=== PATIENT | female | born 1960 | race American Indian/Alaskan Native ===

== ENCOUNTER 2017-10-28 16:56 | Emergency (ER) | payer OTHER ==
[2017-10-28 17:25] VITALS: BP 146/58
[2017-10-28 17:49] LABS: ANION GAP 13.9; CHLORIDE,CL 97 mmol/L (101-111); SODIUM,NA 131 mmol/L (135-145)
[2017-10-28] MEDS ORDERED: Iopamidol 612 MG/ML 100 ML Bottle IVPUSH ONE (18:41)
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
== END 2017-10-28 20:05 | disposition home or self-care (01) ==
LOC: DL.ED 16:56
DX: S30.0XXA Contusion of lower back and pelvis, initial encounter (principal); E11.65 Type 2 diabetes mellitus with hyperglycemia; I10 Essential (primary) hypertension; E78.00 Pure hypercholesterolemia, unspecified; F17.210 Nicotine dependence, cigarettes, uncomplicated; Z79.82 Long term (current) use of aspirin; Z79.4 Long term (current) use of insulin; Z79.899 Other long term (current) drug therapy; Z88.8 Allergy status to other drugs, medicaments and biological substances; Z91.013 Allergy to seafood; V53.5XXA Driver of pick-up truck or van injured in collision with car, pick-up truck or van in traffic accident, initial encounter; Y92.410 Unspecified street and highway as the place of occurrence of the external cause
CPT/HCPCS: 36415; 72125; 72131; 74177; 80053; 80305; 81001; 82962; 85025; 99284; G0480; Q9967

== ENCOUNTER 2018-05-11 23:54 | Emergency (ER) | payer OTHER ==
[2018-05-11 23:59] VITALS: BP 126/63
[2018-05-12] MEDS ORDERED: Ketorolac 30 MG/ML SDV IM ONE (00:36)
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
== END 2018-05-12 01:00 | disposition home or self-care (01) ==
LOC: DL.ED 23:54
DX: S86.912A Strain of unspecified muscle(s) and tendon(s) at lower leg level, left leg, initial encounter (principal); E78.00 Pure hypercholesterolemia, unspecified; I10 Essential (primary) hypertension; E11.9 Type 2 diabetes mellitus without complications; F17.210 Nicotine dependence, cigarettes, uncomplicated; Z88.8 Allergy status to other drugs, medicaments and biological substances; Z79.82 Long term (current) use of aspirin; Z79.4 Long term (current) use of insulin; W22.8XXA Striking against or struck by other objects, initial encounter
CPT/HCPCS: 73562; 96372; 99283; J1885

== ENCOUNTER 2021-02-08 21:25 | Emergency (ER) | payer OTHER ==
[2021-02-08 21:58] VITALS: BP 163/89; PULSE 84
--- NOTE | 2021-02-08 22:47 | CR ---
PROCEDURE INFORMATION: Exam: XR Left Hand Exam date and time: 02/08/2021 10:23 PM Age: 60 years old Clinical indication: Other: Pain/swelling 3rd finger--no trauma; Additional info: Left hand pain TECHNIQUE: Imaging protocol: XR Left hand. Views: 3 or more views. COMPARISON: No relevant prior studies available. FINDINGS: Bones/joints: There is no evidence of acute fracture. There is no subluxation or dislocation. Joint spaces are preserved. No erosion seen. Soft tissues: There is diffuse soft tissue swelling involving the 3rd metacarpophalangeal joint and the proximal aspect of the 3rd finger. IMPRESSION: 1. Soft tissue swelling as described. 2. No bony abnormality seen
--- NOTE | 2021-02-08 22:59 | EDM.PDOC ---
ED HPI GENERAL MEDICAL PROBLEM - General Chief Complaint: Upper Extremity Injury/Pain Stated Complaint: LEFT PAIN/SWOLLEN MIDDLE FINGER EASILY WINDED Time Seen by Provider: 02/08/21 22:45 Source of Information: Reports: Patient History Limitations: Reports: No Limitations - History of Present Illness INITIAL COMMENTS - FREE TEXT/NARRATIVE: This 60 yo female reports to the ED with continued swelling and pain to her left 3rd finger. The patient reports she has been seen in the [facility] 4 times with similar symptoms, but no changes to her antibiotics have been made. The patient reports increased pain over the past 3 days. 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 Left Hand Pain Score (Numeric/FACES): 10 - Related Data Allergies Allergy/AdvReac Type Severity Reaction Status Date / Time lisinopril Allergy Cough Verified 02/08/21 21:53 seafood Allergy Swelling Uncoded 02/08/21 21:53 Home Meds: Home Meds Aspirin [Halfprin] 81 mg PO DAILY 06/15/14 [History] Insulin Aspart [NovoLOG] 30 units SQ TIDAC 06/15/14 [History] Insulin Detemir [Levemir] 30 units SUBCUT BEDTIME 06/15/14 [History] diphenhydrAMINE [Benadryl] 25 mg PO BEDTIME PRN 06/15/14 [History] metFORMIN [Glucophage] 1,000 mg PO BIDM 06/15/14 [History] Celecoxib [CeleBREX] 50 mg PO DAILY 09/01/16 [History] Gabapentin [Neurontin] 100 mg PO TID 05/12/18 [History] Past Medical History HEENT History: Reports: Impaired Vision Cardiovascular History: Reports: High Cholesterol, Hypertension 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 History: Reports: Hepatitis 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: Musculoskeletal History: Reports: Arthritis Endocrine/Metabolic History: Reports: Diabetes, Type II Hematologic History: Reports: Blood Transfusion(s) - Infectious Disease History Infectious Disease History: Reports: Hepatitis A - Past Surgical History GI Surgical History: Reports: Appendectomy Female Surgical History: Reports: Tubal Ligation Social & Family History - Family History Cardiac: Reports: Hypertension, [place] Endocrine/Metabolic: Reports: Diabetes, type II Other Oncologic Family History: mother had cancer, unknown what kind - Tobacco Use Tobacco Use Status *Q: Current Every Day Tobacco User Years of Tobacco use: 5 Packs/Tins Daily: 0.5 - Caffeine Use Caffeine Use: Reports: Coffee Caffeine Use Comment: heavy black coffee drinker - Recreational Drug Use Recreational Drug Use: No Review of Systems - Review of Systems Review Of Systems: Comprehensive ROS is negative, except as noted in HPI. ED EXAM, GENERAL - Physical Exam Exam: See Below Exam Limited By: No Limitations General Appearance: Alert, WD/WN, No Apparent Distress Eye Exam: Bilateral Eye: EOMI, Normal Inspection, PERRL Ears: Normal External Exam, Normal Canal, Hearing Grossly Normal, Normal TMs Nose: Normal Inspection, Normal Mucosa, No Blood Throat/Mouth: Normal Inspection, Normal Lips, Normal Teeth, Normal Gums, Normal Oropharynx, Normal Voice, No Airway Compromise Head: Atraumatic, Normocephalic Neck: Normal Inspection, Supple, Non-Tender, Full Range of Motion Respiratory/Chest: No Respiratory Distress, Lungs Clear, Normal Breath Sounds, No Accessory Muscle Use, Chest Non-Tender Cardiovascular: Normal Peripheral Pulses, Regular Rate, Rhythm, No Edema, No Gallop, No JVD, No Murmur, No Rub GI/Abdominal: Normal Bowel Sounds, Soft, Non-Tender, No Organomegaly, No Distention, No Abnormal Bruit, No Mass (Female) Exam: Deferred Rectal (Female) Exam: Deferred Back Exam: Normal Inspection, Full Range of Motion, NT Extremities: Normal Range of Motion, No Pedal Edema, Normal Capillary Refill, Arm Pain, Other (left hand swelling of 3rd MCP. ) Neurological: Alert, Oriented, CN II-XII Intact, Normal Cognition, Normal Gait, Normal Reflexes, No Motor/Sensory Deficits Psychiatric: Normal Affect, Normal Mood Skin Exam: Warm, Dry, Intact, Normal Color, No Rash Lymphatic: No Adenopathy Course - Vital Signs Last Recorded V/S: Last Vital Signs Temp 35.8 C L 02/08/21 21:37 Pulse 84 02/08/21 21:37 Resp 19 02/08/21 21:37 BP 163/89 H 02/08/21 21:37 Pulse Ox 100 02/08/21 21:37 - Orders/Labs/Meds Orders: Active Orders 24 hr Category Date Time Status CULTURE BLOOD [BC] Stat Lab 02/08/21 22:12 Ordered Labs: Laboratory Tests 02/08/21 02/08/21 02/08/21 Range/Units 22:33 22:33 22:33 WBC 11.1 H (5.0-10.0) 10^3/uL RBC 4.55 (4.2-5.4) 10^6/uL Hgb 12.8 D (12.0-16.0) g/dL Hct 41.0 (37.0-47.0) % MCV 90.1 (80-100) fL MCH 28.1 (27.0-34.0) pg MCHC 31.2 L (33.0-35.0) g/dL Plt Count 325 (150-450) 10^3/uL Neut % (Auto) 59.9 (42.2-75.2) % Lymph % (Auto) 28.8 (20.5-50.1) % Jackson % (Auto) 7.6 (2-8) % Eos % (Auto) 3.3 H (1.0-3.0) % Baso % (Auto) 0.4 (0.0-1.0) % Sodium 140 (136-145) mmol/L Potassium 4.0 (3.5-5.1) mmol/L Chloride 104 (98-107) mmol/L Carbon Dioxide 28 (21-32) mmol/L Anion Gap 12.0 (7-13) mEq/L BUN 14 (7-18) mg/dL Creatinine 0.50 L (0.55-1.02) mg/dL Est Cr Clr Drug Dosing 102.41 mL/min Estimated GFR (MDRD) > 60 BUN/Creatinine Ratio 28.0 (No establ ref range) Glucose 154 H (70-99) mg/dL Lactic Acid 1.3 (0.4-2.0) mmol/L Calcium 8.6 (8.5-10.1) mg/dL Total Bilirubin 0.2 (0.2-1.0) mg/dL AST 11 L (15-37) U/L ALT 21 (14-59) U/L Alkaline Phosphatase 101 (46-116) U/L Total Protein 6.8 (6.4-8.2) g/dL Albumin 2.7 L (3.4-5.0) g/dL Globulin 4.1 Albumin/Globulin Ratio 0.66 Meds: Medications Discontinued Medications Generic Name Dose Route Start Last Admin Trade Name José Miguel PRN Reason Stop Dose Admin Hydromorphone HCl 0.5 mg 02/08/21 23:01 02/08/21 23:21 Hydromorphone 0.5 Mg/0.5 Ml Syringe IVPUSH 02/08/21 23:02 0.5 mg ONETIME ONE Administration Vancomycin HCl 1,500 mg/ 500 mls @ 333.333 mls/hr 02/08/21 22:58 02/08/21 23:16 Sodium Chloride IV 02/09/21 00:27 333.333 mls/hr ONETIME ONE Administration - Radiology Interpretation Free Text/Narrative:: [facility] Final Radiology Report Call: [phone] assistance Online chat: [email or web address] Name: PENNY SANDOVAL Age: 60Years F Date: 02/08/2021 SSN: -- : [id number] Study: CR HAND COMP MIN 3V LT Requesting Physician: Jeff Mitchell Images: 3 Addl Studies: Provided Clinical History: left hand pain Contrast: Contrast Medium: Contrast Amount: Contrast Method: CONFIDENTIALITY STATEMENT This report is intended only for use by the referring physician, and only in accordance with law. If you received this in error, call [phone]. Page 1 of 1 PROCEDURE INFORMATION: Exam: XR Left Hand Exam date and time: 02/08/2021 10:23 PM Age: 60 years old Clinical indication: Other: Pain/swelling 3rd finger--no trauma; Additional info: Left hand pain TECHNIQUE: Imaging protocol: XR Left hand. Views: 3 or more views. COMPARISON: No relevant prior studies available. FINDINGS: Bones/joints: There is no evidence of acute fracture. There is no subluxation or dislocation. Joint spaces are preserved. No erosion seen. Soft tissues: There is diffuse soft tissue swelling involving the 3rd metacarpophalangeal joint and the proximal aspect of the 3rd finger. IMPRESSION: 1. Soft tissue swelling as described. 2. No bony abnormality seen Thank you for allowing us to participate in the care of your patient. Dictated and Authenticated by: Michel Miranda MD 02/08/2021 10:46 PM Central Time ([place] & [place]) Departure - Departure Time of Disposition: 00:55 Disposition: Home, Self-Care 01 Condition: Fair Clinical Impression: Cellulitis of left hand - Discharge Information *PRESCRIPTION DRUG MONITORING PROGRAM REVIEWED*: Not Applicable *COPY OF PRESCRIPTION DRUG MONITORING REPORT IN PATIENT NNEKA: Not Applicable Instructions: Cellulitis, Adult, [id number] Forms: ED Department Discharge Care Plan Goals: The patient was advised of the examination, lab and x-ray results during the visit. The patient was given an IV dose of Vancomycin while in the ED. The patient was discharged with a script for Keflex (500 mg) #40 to take 1 by mouth 4 times per day for 10 days and Bactrim DS #20 to take 1 by mouth 2 times per day for 10 days. The patient was encouraged to follow-up with her primary care facility for continued evaluation and further management. If the patient has any additional symptoms or concerns, the patient should either return to the emergency department or visit her primary care facility. Sepsis Event Note (ED) - Evaluation Sepsis Screening Result: No Definite Risk - Focused Exam Vital Signs: Vital Signs Temp Pulse Resp BP Pulse Ox 02/08/21 21:37 35.8 C L 84 19 163/89 H 100 - My Orders Last 24 Hours: My Active Orders 02/08/21 22:12 CULTURE BLOOD [BC] Stat - Assessment/Plan Last 24 Hours: My Active Orders 02/08/21 22:12 CULTURE BLOOD [BC] Stat
[2021-02-08 23:00] LABS: CHLORIDE,CL 104 mmol/L (98-107); SODIUM,NA 140 mmol/L (136-145)
[2021-02-08] MEDS ORDERED: HYDROmorphone 0.5 MG/0.5 ML Syringe IVPUSH ONE (23:01)
== END 2021-02-09 01:00 | disposition home or self-care (01) ==
LOC: DL.ED 21:25
DX: L03.114 Cellulitis of left upper limb (principal); E11.9 Type 2 diabetes mellitus without complications; M19.90 Unspecified osteoarthritis, unspecified site; Z79.82 Long term (current) use of aspirin; Z79.4 Long term (current) use of insulin; Z88.8 Allergy status to other drugs, medicaments and biological substances; Z91.013 Allergy to seafood; Z72.0 Tobacco use; Z79.899 Other long term (current) drug therapy
CPT/HCPCS: 36415; 73130; 80053; 83605; 85025; 87040; 96365; 96366; 96375; 99283; J1170; J3370; J7040

== ENCOUNTER 2023-11-30 15:05 | Emergency (ER) | payer BC, OTHER ==
[2023-11-30 15:52] VITALS: BP 160/70; PULSE 78
[2023-11-30] MEDS: Bacitracin Oint 1 GM U/D Packet TOP ONE (16:05)
[2023-11-30] MEDS: Take Home: Sulfamethoxazole/Trimethoprim 800-160 MG Tab, 6 Tab Pack PO ONE (16:06)
[2023-11-30] MEDS: Take Home: Doxycycline 100 MG Cap, 4 Cap Pack PO ONE (16:06)
== END 2023-11-30 16:25 | disposition home or self-care (01) ==
LOC: DL.ED 15:05
DX: L02.821 Furuncle of head [any part, except face] (principal); I10 Essential (primary) hypertension; E78.00 Pure hypercholesterolemia, unspecified; E11.9 Type 2 diabetes mellitus without complications; Z79.4 Long term (current) use of insulin; Z88.5 Allergy status to narcotic agent; Z91.013 Allergy to seafood; Z88.8 Allergy status to other drugs, medicaments and biological substances
CPT/HCPCS: 10060; 87070; 99283; 99284; A9270; 87077; 87186

== ENCOUNTER 2024-02-13 20:11 | Emergency (ER) | payer OTHER ==
[2024-02-13 20:40] VITALS: BP 155/74; PULSE 76
[2024-02-13] MEDS: HYDROmorphone 0.5 MG/0.5 ML Syringe IVPUSH ONE (21:02)
[2024-02-13] MEDS: Sodium Chloride 0.9% 10 ML Syringe FLUSH PRN (21:02)
[2024-02-13 21:09] LABS: BASOPHILS PERCENT AUTO 0.1 % (0.0-1.0); EOSINOPHILS PERCENT AUTO 2.7 % (1.0-3.0); HEMOGLOBIN 13.1 g/dL (12.0-16.0); LYMPHOCYTES PERCENT AUTO 27.5 % (20.5-50.1); MEAN CORPUSCULAR HEMOGLOBIN 29.3 pg (27.0-34.0); MEAN CORPUSCULAR HGB CONC 32.8 g/dL (33.0-35.0); MEAN CORPUSCULAR VOLUME 89.5 fL (80-100); MONOCYTES PERCENT AUTO 6.1 % (2-8); NEUTROPHILS PERCENT AUTO 63.6 % (42.2-75.2); PLATELET COUNT,PLT 239 10^3/uL (150-450); RED BLOOD CELL COUNT 4.47 10^6/uL (4.2-5.4); WHITE BLOOD CELL COUNT,WBC 7.1 10^3/uL (5.0-10.0)
[2024-02-13 21:25] LABS: ALBUMIN 3.1 g/dL (3.4-5.0); ANION GAP 13.2 mEq/L (7-13); BILIRUBIN TOTAL 0.2 mg/dL (0.2-1.0); BUN/CREATININE RATIO 18.9 (No establ ref range); CALCIUM 8.4 mg/dL (8.5-10.1); CREATININE 0.9 mg/dL (0.55-1.02); EST CRCL DRUG DOSING (CG) 55.97 mL/min; POTASSIUM,K 4.2 mmol/L (3.5-5.1); PROTEIN TOTAL,TP 7.4 g/dL (6.4-8.2)
[2024-02-13 21:27] LABS: A/G RATIO 0.72
[2024-02-13 21:31] LABS: INR 0.9 (0.9-1.2); PROTHROMBIN TIME 9.1 SEC (9.0-12.0); PTT,PARTIAL THROMBOPLSTIN TIME 23.1 SEC (22.0-34.0)
[2024-02-13] MEDS ORDERED: Glucagon,Human Recombinant 1 MG Vial IM PRN (22:02)
[2024-02-13] MEDS ORDERED: 50% Dextrose in Water 50 ML Syringe IVPUSH PRN (22:02)
[2024-02-13] MEDS: Insulin NPH HUM/REG Insulin HM 100 UNIT/ML 3 ML Vial SQ ONE (22:11)
== END 2024-02-13 22:53 | disposition home or self-care (01) ==
LOC: DL.ED 20:11
DX: S39.011A Strain of muscle, fascia and tendon of abdomen, initial encounter (principal); E11.65 Type 2 diabetes mellitus with hyperglycemia; I10 Essential (primary) hypertension; Z88.8 Allergy status to other drugs, medicaments and biological substances; Z88.5 Allergy status to narcotic agent; Z91.013 Allergy to seafood; Z79.4 Long term (current) use of insulin; Z86.19 Personal history of other infectious and parasitic diseases; Z87.891 Personal history of nicotine dependence; W01.0XXA Fall on same level from slipping, tripping and stumbling without subsequent striking against object, initial encounter
CPT/HCPCS: 36415; 73502; 73552; 80053; 82947; 85025; 85610; 85730; 96374; 99284; J1170; J1815; 99283; J3490

== ENCOUNTER 2024-02-26 20:46 | Emergency (ER) | payer OTHER ==
[2024-02-26 21:30] VITALS: BP 160/70; PULSE 90
[2024-02-26] MEDS: Albuterol/Ipratropium 3.0-0.5 MG/3 ML Neb Soln NEB ONE (21:51)
[2024-02-26 21:52] LABS: BASOPHILS PERCENT AUTO 0.3 % (0.0-1.0); EOSINOPHILS PERCENT AUTO 1.8 % (1.0-3.0); HEMATOCRIT 37.6 % (37.0-47.0); HEMOGLOBIN 12.4 g/dL (12.0-16.0); LYMPHOCYTES PERCENT AUTO 13.1 % (20.5-50.1); MEAN CORPUSCULAR HEMOGLOBIN 29.9 pg (27.0-34.0); MEAN CORPUSCULAR VOLUME 90.6 fL (80-100); MONOCYTES PERCENT AUTO 7.2 % (2-8); NEUTROPHILS PERCENT AUTO 77.6 % (42.2-75.2); PLATELET COUNT,PLT 354 10^3/uL (150-450); RED BLOOD CELL COUNT 4.15 10^6/uL (4.2-5.4); WHITE BLOOD CELL COUNT,WBC 12.2 10^3/uL (5.0-10.0)
[2024-02-26 22:11] LABS: ALANINE AMINOTRANSFERASE,ALT 19 U/L (14-59); ALBUMIN 2.6 g/dL (3.4-5.0); ALKALINE PHOSPHATASE 83 U/L (46-116); ANION GAP 12.1 mEq/L (7-13); ASPARTATE AMNIOTRANSFERASE,AST 12 U/L (15-37); BILIRUBIN TOTAL 0.4 mg/dL (0.2-1.0); BLOOD UREA NITROGEN,BUN 9 mg/dL (7-18); BUN/CREATININE RATIO 11.4 (No establ ref range); CALCIUM 8.5 mg/dL (8.5-10.1); CARBON DIOXIDE,CO2 28 mmol/L (21-32); CHLORIDE,CL 103 mmol/L (98-107); CREATININE 0.79 mg/dL (0.55-1.02); GLUCOSE RANDOM 193 mg/dL (70-99); POTASSIUM,K 4.1 mmol/L (3.5-5.1); PROTEIN TOTAL,TP 7.4 g/dL (6.4-8.2); SODIUM,NA 139 mmol/L (136-145)
[2024-02-26 22:14] LABS: A/G RATIO 0.54; ESTIMATED GFR 85 mL/min (>=60)
[2024-02-26] MEDS: cefTRIAXone 1 GM Vial IM ONE (22:14)
[2024-02-26] MEDS: Azithromycin 250 MG Tab PO ONE (22:14)
[2024-02-26 22:15] LABS: B-TYPE NATRIURETIC PEPTIDE,BNP 53 pg/ml (0-100)
[2024-02-26] MEDS: cefTRIAXone 1 GM Vial IVPUSH ONE (22:22)
[2024-02-26] MEDS: Aspirin 81 MG Tab.Chew PO ONE (22:35)
== END 2024-02-26 22:38 | disposition home or self-care (01) ==
LOC: DL.ED 20:46
DX: J18.9 Pneumonia, unspecified organism (principal); E78.00 Pure hypercholesterolemia, unspecified; I10 Essential (primary) hypertension; E11.9 Type 2 diabetes mellitus without complications; Z88.8 Allergy status to other drugs, medicaments and biological substances; Z88.5 Allergy status to narcotic agent; Z91.013 Allergy to seafood; Z79.4 Long term (current) use of insulin
CPT/HCPCS: 36415; 71045; 80053; 83880; 85025; 85379; 96372; 99284; 99285; A9270-GY; J0696; J7620-GY